=== PATIENT | male | born 2000 | race Two or more races ===

== ENCOUNTER 2025-05-22 22:18 | Emergency (ER) | payer MEDICAID, SELFPAY ==
[2025-05-22 22:21] VITALS: BP 131/86; PULSE 99; RESP 18; TEMP 36.6; O2SAT 95
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
[2025-05-22 22:38] VITALS: BMI 32.5
== END 2025-05-22 23:02 ==
PROVIDERS: Emergency Provider Emergency Medicine
DX: Z02.89 Encounter for other administrative examinations (principal); S50.812A Abrasion of left forearm, initial encounter; V89.2XXA Person injured in unspecified motor-vehicle accident, traffic, initial encounter; Y92.410 Unspecified street and highway as the place of occurrence of the external cause
CPT/HCPCS: 73130; 99282